=== PATIENT | male | born 1990 | race Caucasian/White ===

== ENCOUNTER 2017-09-03 09:38 | Emergency (ER) | payer OTHER ==
[~2017-09-03] VITALS: Ht 170.2 cm; Wt 65.8 kg
[2017-09-03 09:50] VITALS: BP 122/64
--- NOTE | 2017-09-03 09:56 | NUR ---
ARRIVAL PATIENT ARRIVED TO [facility], C/O OF SKIN INFECTION FOR THE PAST 3 DAYS, SWELLING IS WORSE TODAY, DOES HAVE A HISTORY OF ABSCESS IN THE SAME AREA, DID HAVE IT RECENTLY OPENED IN [place], CAME TO ED FOR EVAL TODAY.
--- NOTE | 2017-09-03 11:05 | ER.PDOC ---
General Chief Complaint: Skin Rash/Abscess Stated Complaint: ABSCESS ON FACE Time seen by MD: 11:00 Source: patient Exam Limitations: no limitations History of Present Illness Initial Comments Abscess right jaw for 5 days Severity: moderate Quality: painful Allergies: Coded Allergies: No Known Allergies (Unverified , 09/03/17) Home Meds No Active Prescriptions or Reported Meds Past Medical History Medical History: asthma Surgical History: no surgical history Social History Smoking: cigarettes Alcohol Use: none Drug Use: none Constitutional: no symptoms reported Respiratory: no symptoms reported Cardiovascular: no symptoms reported Gastrointestinal: no symptoms reported Skin: see HPI All Other Systems: Reviewed and Negative Physical Exam General Appearance: alert, no distress Skin: abscess, pointing, fluctuant Location: other (right jaw) With: tenderness, swelling 1 - Swollen, tender, fluctuant Neck: trachea midline, no swelling Respiratory: no resp. distress, breath sounds nml CVS: reg. rate & rhythm, heart sounds nml Abdomen: non-tender, no organomegaly NEURO/PSYCH: oriented x 3, CN's nml as tested, motor nml, sensation nml, mood/ affect nml Progress Progress Started injecting Lidocaine for I&D and patient said it was too painful and told me to stop. He understands that not doing I and D may result to worsening infection, sepsis and . Gave him a script for Bactrim DS. Departure Time of Disposition: 11:04 Disposition: 07 AGAINST MEDICAL ADVICE Impression: Primary Impression: Abscess Condition: Against Medical Advice Referrals: PCP,UNKNOWN (PCP) PRIMARY CARE PROVIDER Scripts No Active Prescriptions or Reported Meds Duration or Time Spent with Pa: 40 mins MANAV GARG MD Sep 03, 2017 11:05
== END 2017-09-03 11:00 | disposition left against medical advice (07) ==
LOC: ER 09:38
DX: L02.01 Cutaneous abscess of face (principal); J45.909 Unspecified asthma, uncomplicated; F17.210 Nicotine dependence, cigarettes, uncomplicated
CPT/HCPCS: 99281